=== PATIENT | male | born 1990 | race Caucasian/White ===

== ENCOUNTER 2017-06-14 14:32 | Emergency (ER) | payer OTHER ==
[2017-06-14 15:25] VITALS: BP 145/90
== END 2017-06-14 18:19 | disposition home or self-care (01) ==
LOC: ED 14:32
DX: S93.402A Sprain of unspecified ligament of left ankle, initial encounter (principal); J45.909 Unspecified asthma, uncomplicated; Z91.030 Bee allergy status; W50.2XXA Accidental twist by another person, initial encounter; Y93.39 Activity, other involving climbing, rappelling and jumping off; Y99.8 Other external cause status; Y92.89 Other specified places as the place of occurrence of the external cause
CPT/HCPCS: Q0092

== ENCOUNTER 2019-11-09 15:49 | Emergency (ER) | payer OTHER ==
[~2019-11-09] VITALS: Ht 25.4 cm; Wt 77.6 kg
[2019-11-09 15:57] VITALS: Ht 25.4 cm; Wt 77.6 kg
[2019-11-09 18:46] VITALS: BP 120/77
== END 2019-11-09 18:48 | disposition home or self-care (01) ==
LOC: ED 15:49
DX: S50.862A Insect bite (nonvenomous) of left forearm, initial encounter (principal); L08.9 Local infection of the skin and subcutaneous tissue, unspecified; W57.XXXA Bitten or stung by nonvenomous insect and other nonvenomous arthropods, initial encounter; Y93.89 Activity, other specified; Y92.89 Other specified places as the place of occurrence of the external cause; Y99.8 Other external cause status